=== PATIENT | female | born 1980 | race African-American/Black ===

== ENCOUNTER 2024-04-18 14:48 | Emergency (ER) | payer OTHER ==
[~2024-04-18] VITALS: Ht 170.2 cm; Wt 98.0 kg
[2024-04-18 14:51] VITALS: BP 137/85; PULSE 85; RESP 15; TEMP 98.3; O2SAT 96
[2024-04-18] MEDS: KETOROLAC 30 MG/ML VIAL IM ONE (16:10)
[2024-04-18 16:24] LABS: BILIRUBIN,URINE NEGATIVE (NEGATIVE); BLOOD, URINE NEGATIVE (NEGATIVE); COLOR,URINE YELLOW (YELLOW); LEUKOCYTE ESTERASE ,URINE TRACE (NEGATIVE); NITRITE, URINE NEGATIVE (NEGATIVE); PROTEIN,URINE NEGATIVE (NEGATIVE); UGLUCOSE NEGATIVE (NEGATIVE); UROBILINOGEN,URINE 0.2 EU/dL (0.2 - 1)
[2024-04-18 16:31] LABS: APPEARANCE,URINE SLIGHTLY HAZY (CLEAR)
[2024-04-18 16:36] LABS: BACTERIA,URINE 1+ /HPF (None Seen); MUCUS,URINE 2+ /LPF (None Seen); SQUAMOUS EPITHELIAL CELL,UR 4-10 (MOD) /LPF (0-3 (FEW))
[2024-04-18] MEDS ORDERED: IBUP-2213 PO (16:58)
== END 2024-04-18 16:47 | disposition home or self-care (01) ==
LOC: MED 14:48
DX: S52.125A Nondisplaced fracture of head of left radius, initial encounter for closed fracture (principal); S80.212A Abrasion, left knee, initial encounter; F20.9 Schizophrenia, unspecified; Z79.899 Other long term (current) drug therapy; Z88.0 Allergy status to penicillin; W01.0XXA Fall on same level from slipping, tripping and stumbling without subsequent striking against object, initial encounter; Y92.89 Other specified places as the place of occurrence of the external cause; Y93.89 Activity, other specified; Y99.8 Other external cause status
CPT/HCPCS: 29105; 73080; 81001; 81025; 87086; 96372; 99284; J1885; Q0092

== ENCOUNTER 2024-04-20 18:24 | Emergency (ER) | payer OTHER ==
[~2024-04-20] VITALS: Ht 170.2 cm; Wt 98.9 kg
[~2024-04-20 18:24] MED LIST: IBUP-2213 PO
[2024-04-20 18:41] VITALS: BP 126/80; PULSE 78; RESP 20; TEMP 98.2
== END 2024-04-20 20:34 | disposition home or self-care (01) ==
LOC: MED 18:24
DX: S52.125A Nondisplaced fracture of head of left radius, initial encounter for closed fracture (principal); Z46.89 Encounter for fitting and adjustment of other specified devices; R03.0 Elevated blood-pressure reading, without diagnosis of hypertension; F20.9 Schizophrenia, unspecified; Z79.899 Other long term (current) drug therapy; Z88.0 Allergy status to penicillin; W18.39XA Other fall on same level, initial encounter; Y92.89 Other specified places as the place of occurrence of the external cause; Y93.89 Activity, other specified; Y99.8 Other external cause status
CPT/HCPCS: 99282; 99283